=== PATIENT | male | born 1980 | race Hispanic/Latino ===

== ENCOUNTER 2022-01-19 14:34 | Emergency (ER) | payer SELFPAY ==
[~2022-01-19] VITALS: Ht 172.7 cm; Wt 100.0 kg
[2022-01-19 15:50] VITALS: BP 143/96
[2022-01-19] MEDS ORDERED: KEFLEX500 MG PO (16:11)
[2022-01-19] MEDS ORDERED: ULTRAM50 M1 PO (16:12)
== END 2022-01-19 16:37 | disposition home or self-care (01) | DRG 605 ==
LOC: WW 14:34 → ED 15:37 → WW 15:37
PROC: 0HQGXZZ Repair Left Hand Skin, External Approach (ICD-10-PCS; principal; 2022-01-19)
DX: S61.412A Laceration without foreign body of left hand, initial encounter (principal); X37.0XXA Hurricane, initial encounter; W29.3XXA Contact with powered garden and outdoor hand tools and machinery, initial encounter; Y93.H9 Activity, other involving exterior property and land maintenance, building and construction; Y92.007 Garden or yard of unspecified non-institutional (private) residence as the place of occurrence of the external cause